=== PATIENT | female | born 2000 | race Caucasian/White ===

== ENCOUNTER 2021-05-16 14:36 | Emergency (ER) | payer OTHER ==
[2021-05-16 15:38] LABS: RED BLOOD COUNT 4.5 M/UL (4.00-5.10); WHITE BLOOD COUNT 9.3 K/UL (4.5-11.0)
[2021-05-16 15:58] LABS: BUN/CREATININE RATIO 10 (0-10)
== END 2021-05-16 21:20 | disposition home or self-care (01) ==
LOC: ER1 14:36
DX: O20.0 Threatened abortion (principal); O99.281 Endocrine, nutritional and metabolic diseases complicating pregnancy, first trimester; E05.90 Thyrotoxicosis, unspecified without thyrotoxic crisis or storm
CPT/HCPCS: 76817; 80053; 81001; 83690; 84702; 84703; 85025; 86900; 86901; 99284